=== PATIENT | female | born 1950 | race Caucasian/White ===

== ENCOUNTER → 2017-09-04 | Outpatient (CLI) | payer MEDICARE, BC ==
--- NOTE | 2017-09-05 10:12 | KCIC ---
DATE: 09/04/2017 EXAM: MAMMO CHARISMA SCREENING BILATERAL HISTORY: Routine screening COMPARISON: 08/27/2016 This study was interpreted with the benefit of Computerized Aided Detection (CAD). The breast parenchyma is heterogeneously dense, which could reduce sensitivity of mammography. Breast parenchyma level C. FINDINGS: 2-D and 3-D tomosynthesis imaging was performed in CC and MLO projections. No new or enlarging breast densities are seen. Benign type calcifications are present. There is a tight cluster of microcalcifications in the lateral left breast which is unchanged, favoring a benign etiology. No suspicious microcalcifications have developed. IMPRESSION: Stable mammograms without evidence of malignancy. BI-RADS CATEGORY: 2 BENIGN FINDING(S) RECOMMENDED FOLLOW-UP: 12M 12 MONTH FOLLOW-UP PQRS compliance statement: Patient information was entered into a reminder system with a target due date for the next mammogram. Mammography is a sensitive method for finding small breast cancers, but it does not detect them all and is not a substitute for careful clinical examination. A negative mammogram does not negate a clinically suspicious finding and should not result in delay in biopsying a clinically suspicious abnormality. "Our facility is accredited by the [employer] Mammography [employer]."
== END | disposition home or self-care (01) ==
LOC: KCIC MAMMO 14:46
PROVIDERS: ATTEND Family Medicine
DX: Z12.31 Encounter for screening mammogram for malignant neoplasm of breast (principal)
CPT/HCPCS: 77063; G0202; 77067

== ENCOUNTER → 2018-09-05 | Outpatient (CLI) | payer MEDICARE, BC ==
--- NOTE | 2018-09-05 17:42 | KCIC ---
Bilateral digital screening mammograms with 3-D tomosynthesis: Reason for examination: Routine screening. Comparison is made to previous studies dated back to 08/22/2015. Bilateral mammograms in CC and oblique projections were obtained with 2-D imaging and 3-D tomosynthesis imaging on a Siemens Inspiration unit and reviewed on the workstation. Interpretation was made with the benefit of CAD. The skin and nipples show no abnormalities. No abnormal axillary lymph nodes are seen. The breast parenchyma is heterogeneously dense. (Breast density: Category C.) There continues to be a small nodular parenchymal density in the 5:00 B position of the right breast which is stable. There are no new no dominant masses, suspicious calcifications or architectural distortion. Benign calcifications are present. Impression: No evidence of malignancy. Recommend routine screening. Your patient's mammogram demonstrates that she has dense breast tissue (breast density category C or D), which could hide abnormalities, and if she has other risk factors for breast cancer that have been identified, she might benefit from supplemental screening tests that may be suggested by you as her ordering physician. Dense breast tissue, in and of itself, is a relatively common condition. Therefore, this information is not provided to cause undue concern, but rather to raise your awareness and to promote discussion with your patient regarding the presence of other risk factors, in addition to dense breast tissue. Your patient's mammography results will be sent to her. BI-RAD Category 2: Benign. "Our facility is accredited by the [employer] Mammography Program." This patient's information has been entered into a reminder system for the patient to be notified with the results of her examination and a target date for the next mammogram. Electronically signed by: Lilia Pedroza MD (09/05/2018 5:39 PM) [email or web address]
== END | disposition home or self-care (01) ==
LOC: KCIC MAMMO 15:31
PROVIDERS: ATTEND Family Medicine
DX: Z12.31 Encounter for screening mammogram for malignant neoplasm of breast (principal)
CPT/HCPCS: 77063; 77067

== ENCOUNTER → 2019-02-20 | Day surgery (SDC) | payer MEDICARE, BC ==
[~2019-02-20] MED LIST: HYDROmorphone 2 MG/ML VIAL IV PRN; IV RINGERS,LACTATED 1000ML 1,000 ML IV SCH; LIDOCAINE 1% PF 2 ML VIAL. ID PRN; LIDOCAINE 2% PF 5 ML VIAL. ONE; MORPHINE SULFATE 2 MG/ML VIAL. IV PRN; ONDANSETRON PF 4 MG/2 ML VIAL. IV PRN; PROCHLORPERAZINE 10 MG/2 ML VIAL. IV PRN; PROPOFOL 40 ML IV ONE; fentaNYL PF VIAL 100 MCG/2 ML VIAL IV PRN
[2019-02-20 10:57] VITALS: BP 125/85
--- NOTE | 2019-02-21 03:35 | HP ---
ADMIT DATE: 02/20/2019 UPDATED HISTORY AND PHYSICAL: REFERRING PHYSICIAN: Michele Marcelo DO. REASON FOR CONSULTATION: Dysphagia, history of colonic polyps. HISTORY OF PRESENT ILLNESS: This is a 68-year-old female with past medical history significant for colonic polyps, pyloric stenosis, AFib, diverticulosis, seen for interval colonoscopy. Bowel habits have been regular without diarrhea or constipation. There has been no melena and no hematochezia. Weight and appetite are stable. She does note recurrent dysphagia for solids mainly in the substernal location. She has taken [id number]-[id number] Prilosec as needed for reflux. With continued issues, request additional evaluation. PAST MEDICAL HISTORY: History of colonic polyps, constipation, diverticulosis and intermittent AFib. ALLERGIES: None. MEDICATIONS: None. PAST SURGICAL HISTORY: Status post tonsillectomy, hysterectomy. REVIEW OF SYSTEMS: Per records. PHYSICAL EXAMINATION: GENERAL: Reveals a well-nourished, well-developed female, alert, cooperative, in no acute distress. VITAL SIGNS: Temperature 97.8, pulse 83, respiration rate 18. HEENT: Reveals normocephalic, atraumatic head. Pupils and extraocular muscles are not tested. Sclerae anicteric. NECK: Supple. LUNGS: Clear. CARDIOVASCULAR: Reveals an S1, S2 without S3, S4 or appreciable murmur. ABDOMEN: Reveals a soft abdomen, normal bowel sounds, without appreciable hepatosplenomegaly. EXTREMITIES: Reveals no cyanosis, clubbing, or edema. IMPRESSION: 1. Dysphagia, etiology is to be determined. Differential includes Schatzki's ring, achalasia, malignancy, Ackerman's, eosinophilic esophagitis and/or presbyesophagus esophagus, recommend upper endoscopy with possible biopsy or dilatation. Discussed with the patient who is willing to proceed. 2. History of colonic polyps. Surveillance colonoscopy is recommended at this time. Risks and benefits including risk of hemorrhage and perforation were discussed. The patient is willing to proceed. ANNE LATHAM MD DR: NGOC/maxi JOB#: [id number] / [id number]
== END | disposition home or self-care (01) ==
LOC: ENDOS 08:43
PROVIDERS: ATTEND Internal Medicine Gastroenterology
DX: Z12.11 Encounter for screening for malignant neoplasm of colon (principal); K57.30 Diverticulosis of large intestine without perforation or abscess without bleeding; K64.0 First degree hemorrhoids; K22.2 Esophageal obstruction; K29.50 Unspecified chronic gastritis without bleeding; Z86.010 Personal history of colon polyps; I48.91 Unspecified atrial fibrillation; Z90.710 Acquired absence of both cervix and uterus; Z98.890 Other specified postprocedural states
CPT/HCPCS: 43235; 43450; G0105; J2001; J2704; 45378

== ENCOUNTER → 2019-09-08 | Outpatient (CLI) | payer MEDICARE, BC ==
[2019-02-20 10:57] VITALS: BP 125/85
--- NOTE | 2019-09-08 19:43 | KCIC ---
Bilateral digital screening mammograms: Reason for examination: Routine screening. Comparison is made to previous studies dated 09/05/2018 and 09/04/2017. Interpretation was made with the benefit of CAD. The skin and nipples show no abnormalities. No abnormal axillary lymph nodes are seen. The breast parenchyma is heterogeneously dense. (Breast density: Category C.) There are no dominant masses, suspicious calcifications or architectural distortion. Vascular calcifications are present. Impression: No evidence of malignancy. Recommend routine screening. Your patient's mammogram demonstrates that she has dense breast tissue (breast density category C or D), which could hide abnormalities, and if she has other risk factors for breast cancer that have been identified, she might benefit from supplemental screening tests that may be suggested by you as her ordering physician. Dense breast tissue, in and of itself, is a relatively common condition. Therefore, this information is not provided to cause undue concern, but rather to raise your awareness and to promote discussion with your patient regarding the presence of other risk factors, in addition to dense breast tissue. Your patient's mammography results will be sent to her. BI-RAD Category 1: Negative. "Our facility is accredited by the [employer] Mammography Program." This patient's information has been entered into a reminder system for the patient to be notified with the results of her examination and a target date for the next mammogram. Electronically signed by: Lilia Pedroza MD (09/08/2019 7:41 PM) [id number]
== END | disposition home or self-care (01) ==
LOC: KCIC MAMMO 12:01
PROVIDERS: ATTEND Internal Medicine
DX: Z12.31 Encounter for screening mammogram for malignant neoplasm of breast (principal); N64.89 Other specified disorders of breast
CPT/HCPCS: 77067

== ENCOUNTER → 2019-09-22 | Outpatient (CLI) | payer MEDICARE ==
[2019-02-20 10:57] VITALS: BP 125/85
--- NOTE | 2019-09-22 16:26 | KCIC ---
MRI of the lumbar spine without contrast 09/22/2019 CLINICAL HISTORY: Chronic low back pain which radiates down the left hip which has worsened in recent months. TECHNIQUE: Unenhanced T1-weighted and T2-weighted sagittal and axial and inversion recovery sagittal images of the lumbar spine were obtained. Minimal S-shaped curvature of the thoracolumbar spine is seen. Degenerative signal changes are seen involving all of the disks of the lower thoracic and throughout the lumbar spine. Degenerative signal changes are seen within the marrow surrounding these discs. The conus medullaris is normal morphology, position, and signal characteristics. FINDINGS: At the L1-2, L2-3 and L3-4 disc spaces there are minimal to mild generalized disc bulges. Degenerative changes are seen on the facet joints bilaterally. There is mild ligamentum flavum hypertrophy bilaterally. These findings do not result in significant central spinal canal or neural foraminal stenosis. At the L4-5 disc space there is a mild to moderate generalized disc bulge. Degenerative changes are seen involving the facet joints bilaterally. There is moderate ligamentum flavum hypertrophy bilaterally. There is a small right facet joint effusion. These findings do not result in significant central spinal canal stenosis. Mild bilateral neural foraminal stenosis is seen. At the L5-S1 disc space there is a mild generalized disc bulge. This is eccentric to the left. Degenerative changes are seen involving the facet joints bilaterally. There is mild ligamentum flavum hypertrophy bilaterally. These findings do not result in significant central spinal canal stenosis. No neural foraminal stenosis is seen. IMPRESSION: The changes of degenerative disc disease are seen throughout the lumbar spine. These findings do not result in significant central spinal canal stenosis. Mild bilateral neural foraminal stenosis is seen at L4-5. Electronically signed by: Pierre Freitas MD (09/22/2019 4:23 PM) [email or web address]
== END | disposition home or self-care (01) ==
LOC: KCIC MRI 14:27
PROVIDERS: ATTEND Internal Medicine
DX: M48.062 Spinal stenosis, lumbar region with neurogenic claudication (principal); M51.26 Other intervertebral disc displacement, lumbar region; M47.816 Spondylosis without myelopathy or radiculopathy, lumbar region; G03.8 Meningitis due to other specified causes; M51.36 Other intervertebral disc degeneration, lumbar region
CPT/HCPCS: 72148

== ENCOUNTER → 2020-05-17 | Outpatient (CLI) | payer MEDICARE ==
[2019-02-20 10:57] VITALS: BP 125/85
--- NOTE | 2020-05-17 16:15 | KCIC ---
L-spine 3 views INDICATION: Spondylolisthesis COMPARISON: L-spine MRI of 09/22/2019. TECHNIQUE: Standing extension lateral view, supine lateral view and standing flexion lateral view of the lumbar spine were obtained FINDINGS: Alignment again demonstrates anterolisthesis of 4 mm of L4 on L5 with 5 lumbar type vertebrae noted. There is no change in alignment with flexion or extension from the supine position. Normal lumbar lordosis is otherwise preserved. No fracture or aggressive appearing osseous lesions are seen. Dense sclerosis at the superior anterior aspect of T12 is noted. Multilevel disc degenerative change is present with mild loss of height. Facet hypertrophic changes also present most conspicuously in the lower lumbar spine at L4-5 and L5-S1. Soft tissues show arterial calcifications in the abdominal aorta. IMPRESSION: No abnormal motion with flexion or extension and no change in anterolisthesis of L4 on L5 of approximately 4 mm between supine and upright positions. Electronically signed by: Micheline Lopez MD (05/17/2020 4:12 PM) [id number]
== END | disposition home or self-care (01) ==
LOC: KCIC 11:26
PROVIDERS: ATTEND Neurological Surgery
DX: M47.817 Spondylosis without myelopathy or radiculopathy, lumbosacral region (principal); M43.16 Spondylolisthesis, lumbar region; I70.0 Atherosclerosis of aorta; G89.29 Other chronic pain; G95.89 Other specified diseases of spinal cord
CPT/HCPCS: 72100

== ENCOUNTER → 2021-03-17 | Outpatient (CLI) | payer MEDICARE ==
[2019-02-20 10:57] VITALS: BP 125/85
--- NOTE | 2021-03-17 12:27 | KCIC ---
Bilateral digital screening mammograms: Reason for examination: Routine screening. Comparison is made to previous studies dated back to 08/22/2015. Interpretation was made with the benefit of CAD. The skin and nipples show no abnormalities. No abnormal axillary lymph nodes are seen. The breast par enchyma is heterogeneously dense. (Breast density: Category C.) There are no dominant masses, suspici ous calcifications or architectural distortion. Vascular calcifications are present. Impression: No evidence of malignancy. Recommend routine screening. Your patient's mammogram demonstrates that she has dense breast tissue (breast density category C or D), which could hide abnormalities, and if she has other risk factors for breast cancer that have bee n identified, she might benefit from supplemental screening tests that may be suggested by you as her ordering physician. Dense breast tissue, in and of itself, is a relatively common condition. Therefo re, this information is not provided to cause undue concern, but rather to raise your awareness and t o promote discussion with your patient regarding the presence of other risk factors, in addition to d ense breast tissue. Your patient's mammography results will be sent to her. BI-RAD Category 1: Negative. "Our facility is accredited by the [employer] Mammography Program." This patient's information has been entered into a reminder system for the patient to be notified wit h the results of her examination and a target date for the next mammogram. Electronically signed by: Lilia Pedroza MD (03/17/2021 12:25 PM) [id number]
== END ==
LOC: KCIC MAMMO 08:27
PROVIDERS: ATTEND Anesthesiology Pain Medicine
DX: Z12.31 Encounter for screening mammogram for malignant neoplasm of breast (principal)
CPT/HCPCS: 77067

== ENCOUNTER → 2021-03-17 | Outpatient (CLI) | payer MEDICARE ==
[2019-02-20 10:57] VITALS: BP 125/85
--- NOTE | 2021-03-17 11:29 | KCIC ---
MRI STUDY OF THE RIGHT ANKLE WITHOUT CONTRAST Clinical indications: Right ankle pain. Chronic right heel pain for years. TECHNIQUE: Noncontrast MRI sequences of the right ankle which includes the right hindfoot were perfor med in all 3 planes. FINDINGS: There is moderate stress reaction bone marrow edema involving the posterior posterior super ior aspects of the calcaneus. There is less prominent stress reaction bone marrow edema involving the navicular bone and first and second and third cuneiform bones and the cuboid bone and the proximal f irst and third and fourth metatarsal bones. There is degenerative osteoarthritis of the intertarsal j oints and the tarsal metatarsal joints along with mild degenerative spurring. Therefore, with the exc eption of the calcaneus, the stress reaction bone marrow edema involving other bones most likely is r elated to degenerative osteoarthritis. Stress reaction bone marrow edema of the calcaneus is in assoc iation with signal abnormality and thickening of the Achilles tendon consistent with chronic tendinos is and microtears. No high-grade partial tear or complete tear of the Achilles tendon is seen. There is mild pre-Achilles bursitis present. No Kieran deformity of the calcaneus is seen otherwise. There is mild stress reaction bone marrow edema of the distal fibular metaphysis and epiphysis. No focal o steochondral abnormality of the dome of talus is seen. There is mild degenerative cyst formation invo lving the anterior tibial plafond along with mild degenerative spurring of the anterior aspect of the tibiotalar joint compartment. Small mortise ankle joint effusion is seen. There is mild degenerative spurring of the posterior subtalar joint compartment. Small posterior subtalar joint effusion is see n. No fracture line is evident. The plantar aponeurosis is intact. However, there is thickening and i ncreased signal of the plantar aponeurosis at the attachment to the plantar aspect of the calcaneus. There is a moderate-sized plantar spur of the calcaneus. Findings may be reflective of plantar fascii tis. The sinus tarsi is unremarkable and the cervical and talocalcaneal ligaments are intact. The fle xor tendons are intact. There is fluid present within the tendinous sheath of the flexor hallucis jerry aury tendon which may be related to the mortise ankle joint effusion. There is a partial longitudinal split tear of the peroneus brevis tendon. The peroneus longus tendon is intact. No tenosynovitis of t he peroneal tendons is seen. The extensor tendons are intact and no tenosynovitis is seen here. The f lexor and peroneal and extensor retinacular ligaments are intact. Anterior/posterior tibiofibular lig aments and anterior/posterior talofibular ligaments and deltoid ligament and calcaneofibular ligament and spring ligament are intact. There is a periarticular ganglion cyst seen just lateral to the dist al talus deep to the extensor digitorum longus tendon. It measures 13 mm. IMPRESSION: Chronic Achilles tendinosis with chronic microtears. No high-grade partial tear or comple te tear of the Achilles tendon is seen. Pre-Achilles bursitis. Moderate stress reaction bone marrow e franny of the posterior posterior superior aspect of the calcaneus. Plantar fasciitis with moderate-sized plantar spur of the calcaneus. 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 Mild stress reaction bone marrow edema of the distal fibula. Small degenerative cyst of the anterior tibial plafond. Small mortise ankle joint effusion and mild degenerative osteoarthritis of the tibiot alar joint compartment. Mild primary degenerative osteoarthritis the posterior subtalar joint compart ment. No osseous tarsal coalition is seen. Periarticular ganglion cyst located lateral to the distal talus. No ligament tear. Partial longitudinal split tear of the peroneus brevis tendon without tenosynovitis. Electronically signed by: Gabe Anne MD (03/17/2021 11:27 AM) [id number]
== END ==
LOC: KCIC MRI 08:30
PROVIDERS: ATTEND Anesthesiology Pain Medicine
DX: M19.071 Primary osteoarthritis, right ankle and foot (principal); M77.31 Calcaneal spur, right foot
CPT/HCPCS: 73721